=== PATIENT | male | born 1945 | race Caucasian/White ===

== ENCOUNTER → 2019-11-01 | Day surgery (SDC) | payer MEDICARE ==
[~2019-11-01] MED LIST: ALLO300T2 PO; BETH25TA11 PO; CALC500T64 PO; CHOL20002 PO; DCS100C PO; DILT240C87 PO; DILT360C20 PO; FENO160T PO; FENO160T12 PO; FINA5TAB6 PO; GABA-488 PO; HYDR-3876 PO; HYDR-4226 PO; HYDR-700 PO; LIDOCAINE UROJET 2% GEL 10 ML PKG ONE; LISI-552 PO; LISI-596 PO; MAGN400O7 PO; METF-397 PO; MORP1VIA3 IJ; MTF500T PO; NIAC1000 PO; NIAC10002 PO; OMEG1CAP74 PO; ONDA4TAB11 PO; OXYC-471 PO; Oxycodone Hcl/Acetaminophen PO; POLY17PO6 PO; PROM12.511 PO; SENN-141 PO
--- NOTE | 2019-11-01 09:35 | Progress Note-Post Operative ---
Post-Operative Progess Note Surgeon (s)/[facility] (s) Surgeon FENG BRITO MD [facility]: NONE Pre-Operative Diagnosis URINE RETENTION Post-Operative Diagnosis SAME Procedure & Operative Findings Date of Procedure 11/01/19 Procedure Performed/Findings CYSTOSCOPY Anesthesia Type LOCAL Estimated Blood Loss Estimated blood loss (mL): NONE Specimens/Packing Specimens Removed NONE Packing: NONE FENG BRITO MD Nov 01, 2019 09:35
--- NOTE | 2019-11-01 13:56 | OPERATIVE REPORT ---
DATE OF SERVICE: 11/01/2019 PREOPERATIVE DIAGNOSIS: Urinary retention. POSTOPERATIVE DIAGNOSIS: Urinary retention. OPERATION PERFORMED: Cystoscopy. SURGEON: Messi Brito MD. ANESTHESIA: Local. COMPLICATIONS: None. DESCRIPTION OF PROCEDURE: With the patient supine in his bed after removing the Johnson catheter, genitalia were prepped and draped in the usual sterile fashion. The urethra was infiltrated with 2% lidocaine jelly. Penile clamp was applied. This was then removed and a flexible cystoscope was introduced under vision. The anterior urethra was normal. The prostate was somewhat enlarged, but no complete bladder neck obstruction. Bladder was entered and revealed some trabeculation. No foreign body, bladder tumor or stone visualized. Cystoscopy was confirmed in an antegrade fashion and the cystoscope was removed. The patient tolerated the procedure and anesthesia well and remained in his bed in a stable condition. PLAN: I discussed and conveyed with the patient, we will give him trial of voiding. Now, he is on full treatment and trial twice at least before we reinsert the catheter. If we do so, we may hold off on Urecholine just in case because of the enlarged prostate. Job ID: [id number] DocumentID: [id number] Dictated Date: 11/01/2019 09:33:52 Auto Body Repair Technician Date: 11/01/2019 13:55:14 Dictated By: MESSI BRITO MD
== END | disposition short-term general hospital (02) ==
LOC: SDC 07:09
PROVIDERS: ATTEND Urology
DX: R32 Unspecified urinary incontinence (principal)

== ENCOUNTER → 2019-11-10 | Day surgery (SDC) | payer MEDICARE ==
[~2019-11-10] MED LIST changes: +LACTATED RINGERS 1,000 ML IV PRN; +LIDOCAINE PF 2% 5 ML (XYLOCAINE) VIAL ONE; -LIDOCAINE UROJET 2% GEL 10 ML PKG ONE; +ONDANSETRON 4 MG/2 ML (SDV) Z0FRAN IVP PRN; +ONDANSETRON 4 MG/2 ML (SDV) Z0FRAN ONE; -SENN-141 PO; +SENN-234 PO; +SEVOFLURANE (ULTANE) 15 ML INHAL SOLN ONE; +fentaNYL INJECTION 100 MCG/2 ML AMP ONE; +morphine INJ 10 MG/ML 1ML (SYR OR VIAL) IVP ONE; +morphine INJ 10 MG/ML 1ML (SYR OR VIAL) ONE; +proPOfol 200 MG/20 ML (DIPRIVAN) VIAL IV ONE
--- NOTE | 2019-11-10 07:16 | Progress Note-Pre Operative ---
Pre-Operative Progress Note H&P Reviewed The H&P was reviewed, patient examined and no changes noted. Date Seen by Provider: Nov 10, 2019 Time Seen by Provider: 07:15 Date H&P Reviewed: Nov 10, 2019 Time H&P Reviewed: 07:15 Pre-Operative Diagnosis: URINE RETENTION FENG BRITO MD Nov 10, 2019 07:16
--- NOTE | 2019-11-10 09:13 | Progress Note-Post Operative ---
Post-Operative Progess Note Surgeon (s)/Punch Out Crew Member (s) Surgeon FENG BRITO MD Punch Out Crew Member: NONE Pre-Operative Diagnosis URINE RETENTION Post-Operative Diagnosis SAME Procedure & Operative Findings Date of Procedure 11/10/19 Procedure Performed/Findings UROLIFT IMPLANTS Anesthesia Type GENERAL Estimated Blood Loss Estimated blood loss (mL): NEGLIGIBLE Specimens/Packing Specimens Removed NONE Packing: NONE FENG BRITO MD Nov 10, 2019 09:13
[2019-11-10 09:14] VITALS: BP 121/71
[2019-11-10 09:30] VITALS: BP 127/75
[2019-11-10 09:40] VITALS: BP 123/60
[2019-11-10 09:50] VITALS: BP 119/69
[2019-11-10 10:00] VITALS: BP 119/69
--- NOTE | 2019-11-10 10:08 | Anesthesia-General Post-Op ---
General Patient Condition Mental Status/LOC: Same as Preop Cardiovascular: Satisfactory Nausea/Vomiting: Absent Respiratory: Satisfactory Pain: Controlled Complications: Absent Post Op Complications Complications None Follow Up Care/Instructions Patient Instructions None needed. Anesthesia/Patient Condition Patient Condition Patient is doing well, no complaints, stable vital signs, no apparent adverse anesthesia problems. No complications reported per nursing. CHIARA ZIMMER CRNA Nov 10, 2019 10:08
--- NOTE | 2019-11-10 10:44 | OPERATIVE REPORT ---
DATE OF SERVICE: 11/10/2019 PREOPERATIVE DIAGNOSES: Urinary retention, benign prostatic hyperplasia and neurogenic bladder. POSTOPERATIVE DIAGNOSIS: Urinary retention, benign prostatic hyperplasia and neurogenic bladder. OPERATION PERFORMED: UroLift implants. SURGEON: Messi Brito MD ANESTHESIA: General. COMPLICATIONS: None. DESCRIPTION OF PROCEDURE: Under satisfactory general anesthesia, the patient in lithotomy position, genitalia were prepped and draped in the usual sterile fashion. The special cystoscope was introduced under vision and the bladder was evacuated. I went ahead and inserted 4 implants, 2 on each side proximally around 1 to 1.5 cm distal to the bladder neck and the other two at the level just proximal to the verumontanum. There was very good opening of the channel, was very minimal bleeding. The scope was removed. The Johnson catheter was inserted, connected to dependent drainage, the return of which was tinged. Estimated blood loss was negligible. The patient tolerated the procedure and anesthesia well and was sent to recovery room in stable condition. Job ID: [id number] DocumentID: [id number] Dictated Date: 11/10/2019 09:17:31 Careers Counsellor Date: 11/10/2019 10:44:13 Dictated By: MESSI BRITO MD
--- NOTE | 2019-11-11 07:20 | Anesthesia-General Post-Op ---
General Patient Condition Mental Status/LOC: Same as Preop Cardiovascular: Satisfactory Nausea/Vomiting: Absent Respiratory: Satisfactory Pain: Controlled Complications: Absent Post Op Complications Complications None Follow Up Care/Instructions Patient Instructions None needed. Anesthesia/Patient Condition Patient Condition Patient is doing well, no complaints, stable vital signs, no apparent adverse anesthesia problems. No complications reported per nursing. BONILLA GARZA CRNA Nov 11, 2019 07:20
== END ==
LOC: SDC 07:17
PROVIDERS: ATTEND Urology
DX: N40.1 Benign prostatic hyperplasia with lower urinary tract symptoms (principal); R33.9 Retention of urine, unspecified; N31.9 Neuromuscular dysfunction of bladder, unspecified; I25.10 Atherosclerotic heart disease of native coronary artery without angina pectoris; G47.33 Obstructive sleep apnea (adult) (pediatric); E11.42 Type 2 diabetes mellitus with diabetic polyneuropathy; E11.22 Type 2 diabetes mellitus with diabetic chronic kidney disease; I12.9 Hypertensive chronic kidney disease with stage 1 through stage 4 chronic kidney disease, or unspecified chronic kidney disease; N18.9 Chronic kidney disease, unspecified; Z88.1 Allergy status to other antibiotic agents
CPT/HCPCS: C9740